=== PATIENT | female | born 2005 | race Caucasian/White ===

== ENCOUNTER 2024-04-27 10:28 | Emergency (ER) | payer OTHER ==
[~2024-04-27] VITALS: Ht 165.1 cm; Wt 57.3 kg
[2024-04-27 10:35] VITALS: BP 111/57; PULSE 84; RESP 18; TEMP 98; O2SAT 98
[2024-04-27] MEDS: IBUPROFEN 400 MG TABLET PO ONE (11:49)
[2024-04-27] MEDS: ACETAMINOPHEN 325 MG TABLET PO ONE (11:49)
== END 2024-04-27 12:55 | disposition home or self-care (01) ==
LOC: EMS 10:28
DX: S80.02XA Contusion of left knee, initial encounter (principal); S20.224A Contusion of middle back wall of thorax, initial encounter; W10.8XXA Fall (on) (from) other stairs and steps, initial encounter; Y93.89 Activity, other specified; Y92.89 Other specified places as the place of occurrence of the external cause; Y99.8 Other external cause status
CPT/HCPCS: 72072; 99284; 73562-TC; Z7502; Z7610

== ENCOUNTER 2024-05-25 16:26 | Emergency (ER) | payer OTHER ==
[~2024-05-25] VITALS: Ht 162.6 cm; Wt 56.4 kg
[2024-05-25 16:38] VITALS: BP 120/60; PULSE 86; RESP 14; TEMP 98.9; O2SAT 100
[2024-05-25 17:53] LABS: APPEARANCE,URINE CLEAR (CLEAR); BILIRUBIN,URINE NEGATIVE (NEGATIVE); COLOR,URINE LIGHT YELLOW (YELLOW); GLUCOSE, URINE (UA) NEGATIVE (NEGATIVE); KETONES,URINE NEGATIVE (NEGATIVE); LEUKOCYTE ESTERASE ,URINE TRACE (NEGATIVE); NITRATE,URINE NEGATIVE (NEGATIVE); OCCULT BLOOD,URINE NEGATIVE (NEGATIVE); PROTEIN,URINE TRACE mg/dL (NEGATIVE); SPECIFIC GRAVITIY, URINE 1.028 (1.003-1.030); UROBILINOGEN,URINE <=1.0 mg/dL (<=1.0)
[2024-05-25 18:10] LABS: BACTERIA,URINE Few /HPF (None Seen); RBC,URINE 0-2 /HPF (0-2); SQUAMOUS EPITHELIAL CELL,UR Few /LPF (None Seen)
== END 2024-05-25 19:13 | disposition left against medical advice (07) ==
LOC: EMS 16:28
DX: R10.2 Pelvic and perineal pain (principal); Z53.21 Procedure and treatment not carried out due to patient leaving prior to being seen by health care provider
CPT/HCPCS: 81001